=== PATIENT | female | born 1945 | race Caucasian/White ===

== ENCOUNTER 2017-10-26 07:22 | Day surgery (SDC) | payer OTHER, BC ==
[~2017-10-26] VITALS: Ht 167.6 cm; Wt 127.0 kg
[~2017-10-26 07:22] MED LIST: ALLEGRA ALLERG180 MG PO; ALLOPURINOL100 MG PO; COLACE100 MG PO; DITROPAN XL10 MG PO; FLONASE16 G1 BOTH NARES; KEFLEX500 MG PO; VALSARTAN-HCTZ1 EAC2 PO
[2017-10-26 08:23] VITALS: BP 117/57
[2017-10-26 12:43] VITALS: BP 140/65
== END 2017-10-26 13:40 | disposition home or self-care (01) ==
LOC: SDC 07:22
DX: S64.01XA Injury of ulnar nerve at wrist and hand level of right arm, initial encounter (principal); S66.821A Laceration of other specified muscles, fascia and tendons at wrist and hand level, right hand, initial encounter; S66.122A Laceration of flexor muscle, fascia and tendon of right middle finger at wrist and hand level, initial encounter; S66.124A Laceration of flexor muscle, fascia and tendon of right ring finger at wrist and hand level, initial encounter; S66.126A Laceration of flexor muscle, fascia and tendon of right little finger at wrist and hand level, initial encounter; W25.XXXA Contact with sharp glass, initial encounter; I10 Essential (primary) hypertension; C85.10 Unspecified B-cell lymphoma, unspecified site; Z88.1 Allergy status to other antibiotic agents; Z88.2 Allergy status to sulfonamides
CPT/HCPCS: 84295; J0330; J0690; J1100; J2250; J2405; J3010; S0020